=== PATIENT | female | born 1950 | race Caucasian/White ===

== ENCOUNTER 2018-10-26 07:21 | Day surgery (SDC) | payer MEDICARE ==
[2018-10-26] MEDS ORDERED: Lactated Ringers 1,000 ML IV SCH (07:30)
[2018-10-26] MEDS ORDERED: Midazolam 1 MG/ML 2 ML SDV ONE (07:56)
[2018-10-26] MEDS ORDERED: Propofol 200 MG/20 ML SDV ONE ×2 (07:56→09:01)
[2018-10-26] MEDS ORDERED: fentaNYL 100 MCG/2 ML SDV ONE (07:56)
[2018-10-26 10:17] VITALS: BP 140/75
--- NOTE | 2018-10-26 14:32 | OR ---
DATE OF PROCEDURE: 10/26/2018 PREOPERATIVE DIAGNOSIS: History of tubular adenoma. POSTOPERATIVE DIAGNOSES: Very poor colonoscopy prep, history of tubular adenoma. PROCEDURE: Colonoscopy to the cecum, but not into the cecum. ANESTHESIA: IV anesthesia with monitored anesthesia care. INDICATION: This 68-year-old white female is referred for a colonoscopy because of a history of tubular adenoma. She does not know when her last colonoscopic exam was done. I counseled her for the procedure including risks and alternatives, and she gave her informed consent to proceed. DESCRIPTION OF PROCEDURE: The patient was placed in the left lateral decubitus position. IV anesthesia was administered by the Anesthesia Service. Time-out was held. A rectal exam was performed which was unremarkable. The flexible video Olympus colonoscope was introduced through her anus, up her rectum, out her colon, all the way to, but not into the cecum. The prep was very poor. We aspirated and washed a lot of the colon, however, there were too many solids to even begin to clear the colon for a good mucosal exam. Since the scope would not go into the cecum and there was a pool of stool in the cecum, it was not visualized. The scope was then slowly withdrawn examining the visualized mucosa. No mucosal abnormalities were noted. The scope was retroflexed in the rectum with the distal rectum appearing unremarkable. The scope was straightened and removed. She tolerated the procedure well. Clement Montenegro MD /[id number]
== END 2018-10-26 10:38 | disposition home or self-care (01) ==
LOC: JP.SDS 07:21
PROVIDERS: ATTEND Surgery
DX: Z12.11 Encounter for screening for malignant neoplasm of colon (principal); E11.22 Type 2 diabetes mellitus with diabetic chronic kidney disease; N18.9 Chronic kidney disease, unspecified; E66.9 Obesity, unspecified; I25.10 Atherosclerotic heart disease of native coronary artery without angina pectoris; K21.9 Gastro-esophageal reflux disease without esophagitis; F32.9 Major depressive disorder, single episode, unspecified; Z86.010 Personal history of colon polyps
CPT/HCPCS: 45378; 82962; J2250; J2704; J3010; J7120

== ENCOUNTER 2021-12-23 08:14 | Day surgery (SDC) | payer MEDICARE ==
[~2021-12-23 08:14] MED LIST: Midazolam 1 MG/ML 2 ML SDV ONE; Propofol 200 MG/20 ML SDV ONE; fentaNYL 100 MCG/2 ML SDV ONE
[2021-12-23] MEDS ORDERED: Sodium Chloride 0.9% 1,000 ML IV SCH (08:30)
[2021-12-23 10:51] VITALS: BP 164/98; PULSE 107
== END 2021-12-23 11:05 | disposition home or self-care (01) ==
LOC: JP.SDS 08:14
PROVIDERS: ATTEND Surgery
DX: Z12.11 Encounter for screening for malignant neoplasm of colon (principal); D12.5 Benign neoplasm of sigmoid colon; K56.2 Volvulus; I12.9 Hypertensive chronic kidney disease with stage 1 through stage 4 chronic kidney disease, or unspecified chronic kidney disease; E11.22 Type 2 diabetes mellitus with diabetic chronic kidney disease; K21.9 Gastro-esophageal reflux disease without esophagitis; I25.10 Atherosclerotic heart disease of native coronary artery without angina pectoris; N18.9 Chronic kidney disease, unspecified; Z86.010 Personal history of colon polyps
CPT/HCPCS: 88305; J2250; J2704; J3010; J7030

== ENCOUNTER 2022-09-10 20:12 | Emergency (ER) | payer MEDICARE ==
[2022-09-10 20:41] LABS: ESTIMATED GFR 54 mL/min (>60)
[2022-09-10 21:48] VITALS: BP 176/94; PULSE 83
[2022-09-10] MEDS ORDERED: Diphtheria,Pertussis(Acell),Tetanus Vaccine 0.5 ML Syringe IM ONE (22:15)
== END 2022-09-10 23:47 | disposition home or self-care (01) ==
LOC: JP.ED 20:12
DX: S00.83XA Contusion of other part of head, initial encounter (principal); S00.31XA Abrasion of nose, initial encounter; G89.29 Other chronic pain; M54.2 Cervicalgia; E78.00 Pure hypercholesterolemia, unspecified; I10 Essential (primary) hypertension; I25.2 Old myocardial infarction; E11.9 Type 2 diabetes mellitus without complications; E66.9 Obesity, unspecified; Z68.36 Body mass index [BMI] 36.0-36.9, adult; Z88.6 Allergy status to analgesic agent; Z88.8 Allergy status to other drugs, medicaments and biological substances; Z79.899 Other long term (current) drug therapy; Z79.4 Long term (current) use of insulin; Z79.82 Long term (current) use of aspirin; Z79.01 Long term (current) use of anticoagulants; Z90.710 Acquired absence of both cervix and uterus; W00.9XXA Unspecified fall due to ice and snow, initial encounter
CPT/HCPCS: 36415; 70450; 70486; 72125; 76377; 80053; 85025; 85610; 85730; 90471; 90715; 99285-25; 99291

== ENCOUNTER 2022-11-29 15:06 | Emergency (ER) | payer MEDICARE, MEDICAID ==
[2022-11-29] MEDS ORDERED: Sodium Chloride 0.9% 10 ML Syringe FLUSH PRN (15:11)
[2022-11-29 15:49] LABS: ESTIMATED GFR 54 mL/min (>60)
[2022-11-29 18:13] VITALS: BP 144/62; PULSE 60
[2022-11-29] MEDS ORDERED: Cephalexin 250 MG Cap PO ONE (19:08)
== END 2022-11-29 20:50 | disposition home or self-care (01) ==
LOC: JP.ED 15:06
DX: L72.3 Sebaceous cyst (principal); N39.0 Urinary tract infection, site not specified; E11.65 Type 2 diabetes mellitus with hyperglycemia; R32 Unspecified urinary incontinence; E11.40 Type 2 diabetes mellitus with diabetic neuropathy, unspecified; E03.9 Hypothyroidism, unspecified; M19.90 Unspecified osteoarthritis, unspecified site; E78.00 Pure hypercholesterolemia, unspecified; I10 Essential (primary) hypertension; I25.2 Old myocardial infarction; E66.9 Obesity, unspecified; Z68.33 Body mass index [BMI] 33.0-33.9, adult; Z95.0 Presence of cardiac pacemaker; Z79.01 Long term (current) use of anticoagulants; Z87.891 Personal history of nicotine dependence; Z95.5 Presence of coronary angioplasty implant and graft; Z79.4 Long term (current) use of insulin; Z79.82 Long term (current) use of aspirin; Z88.6 Allergy status to analgesic agent; Z88.8 Allergy status to other drugs, medicaments and biological substances
CPT/HCPCS: 36415; 80053; 81001; 85025; 85610; 85730; 87070; 87205; 99284; A9270; 87077; 87186